=== PATIENT | male | born 1990 | race Caucasian/White ===

== ENCOUNTER 2016-09-27 10:36 | Emergency (ER) | payer OTHER ==
--- NOTE | 2016-09-27 10:59 | PDOC ---
History of Present Illness - General History Source: Patient Exam Limitations: Clinical Condition - History of Present Illness Initial Comments: 09/27/16 11:04 The patient is a 26-year-old male, accompanied by health aide, with a significant past medical history of autism who presents to the emergency department via EMS for further evaluation of chest pain. Patient states that his chest pain is midsternal. He is unable to describe the nature of the pain and/or provide exacerbating/alleviating factors but notes that his pain occurs after he eats and lays flat to go to bed. No other information, as patient is vague when answering questions. <Emily Drummond - Last Filed: 09/27/16 11:05> <Prabha Huber - Last Filed: 09/27/16 12:38> - General Stated Complaint: CHEST PAIN Time Seen by Provider: 09/27/16 10:57 Past History <Emily Drummond - Last Filed: 09/27/16 11:05> <Prabha Huber - Last Filed: 09/27/16 12:38> - Past Medical History Allergies/Adverse Reactions: Allergies Allergy/AdvReac Type Severity Reaction Status Date / Time Penicillins Allergy Verified 09/27/16 11:31 Home Medications: Ambulatory Orders Aripiprazole [Abilify -] 5 mg PO DAILY 09/27/16 Cholecalciferol (Vitamin D3) [Vitamin D3 -] 1,000 unit PO DAILY 09/27/16 Divalproex Sodium [Depakote] 250 mg PO DAILY 09/27/16 Divalproex [Depakote -] 500 mg PO DAILY 09/27/16 Paroxetine HCl [Paxil -] 20 mg PO DAILY 09/27/16 Review of Systems - Review of Systems Able to Perform ROS?: Yes Comments:: 09/27/16 11:07 GENERAL/CONSTITUTIONAL: No fever or chills. No weakness. HEAD, EYES, EARS, NOSE AND THROAT: No change in vision. No ear pain or discharge. No sore throat. CARDIOVASCULAR: Yes: +Chest pain. No shortness of breath. RESPIRATORY: No cough, wheezing, or hemoptysis. GASTROINTESTINAL: No nausea, vomiting, diarrhea or constipation. GENITOURINARY: No dysuria, frequency, or change in urination. MUSCULOSKELETAL: No joint or muscle swelling or pain. No neck or back pain. SKIN: No rash NEUROLOGIC: No headache, vertigo, loss of consciousness, or change in strength/ sensation. ENDOCRINE: No increased thirst. No abnormal weight change. HEMATOLOGIC/LYMPHATIC: No anemia, easy bleeding, or history of blood clots. ALLERGIC/IMMUNOLOGIC: No hives or skin allergy. <Emily Drummond - Last Filed: 09/27/16 11:05> *Physical Exam - Physical Exam Comments: 09/27/16 11:04 GENERAL: Awake, alert, and fully oriented, in no acute distress HEAD: No signs of trauma EYES: PERRLA, EOMI, sclera anicteric, conjunctiva clear ENT: Auricles normal inspection, hearing grossly normal, nares patent, oropharynx clear without exudates. Moist mucosa NECK: Normal ROM, supple, no lymphadenopathy, JVD, or masses LUNGS: Breath sounds equal, clear to auscultation bilaterally. No wheezes, and no crackles HEART: Regular rate and rhythm, normal S1 and S2, no murmurs, rubs or gallops ABDOMEN: Soft, nontender, normoactive bowel sounds. No guarding, no rebound. No masses EXTREMITIES: Normal range of motion, no edema. No clubbing or cyanosis. No cords, erythema, or tenderness NEUROLOGICAL: Cranial nerves II through XII grossly intact. Normal speech. <Emily Drummond - Last Filed: 09/27/16 11:05> Heart Score/ECG Review - ECG Impressions Comment:: EKG read 11:10- NSR 91 bpm, no acute ST/T changes. <Prabha Huber - Last Filed: 09/27/16 12:38> *DC/Admit/Observation/Transfer - Attestations Scribe Attestion: 09/27/16 11:04 Documentation prepared by Emily Drummond, acting as medical device for Prabha Huber MD. <Emily Drummond - Last Filed: 09/27/16 11:05> - Discharge Dispostion Admit: No <Prabha Huber - Last Filed: 09/27/16 12:38> Diagnosis at time of Disposition: Upper respiratory tract infection Qualifiers: URI type: unspecified viral URI Qualified Code(s): J06.9 - Acute upper respiratory infection, unspecified; B97.89 - Other viral agents as the cause of diseases classified elsewhere - Discharge Dispostion Disposition: HOME Condition at time of disposition: Stable
[2016-09-27] MEDS ORDERED: MAG HYDROX/AL HYDROX/SIMETH 30 ML UNIT-DOSE CUP PO ONE (11:03)
[2016-09-27] MEDS ORDERED: ACETAMINOPHEN 325 MG TABLET (FP) PO ONE (11:12)
--- NOTE | 2016-09-27 11:25 | EKG ---
Test Reason : Blood Pressure : / mmHG Vent. Rate : 091 BPM Atrial Rate : 091 BPM P-R Int : 132 ms QRS Dur : 102 ms QT Int : 358 ms P-R-T Axes : 056 020 026 degrees QTc Int : 440 ms NORMAL SINUS RHYTHM NORMAL ECG NO PREVIOUS ECGS AVAILABLE Confirmed by HITESH CABA MD ([id number]) on 09/27/2016 11:25:41 AM Referred By: Confirmed By:HITESH CABA MD
[2016-09-27 11:31] VITALS: BMI 27.7
[2016-09-27] MEDS ORDERED: ACETAMINOPHEN 325 MG TABLET (FP) ONE (11:37)
[2016-09-27] MEDS ORDERED: MAG HYDROX/AL HYDROX/SIMETH 30 ML UNIT-DOSE CUP ONE (11:37)
[2016-09-27 12:54] VITALS: BP 138/89; PULSE 92; TEMP 99
== END 2016-09-27 12:54 | disposition home or self-care (01) ==
LOC: JER 10:36
DX: J06.9 Acute upper respiratory infection, unspecified (principal); B97.89 Other viral agents as the cause of diseases classified elsewhere; F84.0 Autistic disorder
CPT/HCPCS: 71020-TC; 87804; 93005; 93010; 99283-25

== ENCOUNTER 2017-07-13 18:03 | Emergency (ER) | payer BC, OTHER ==
[2017-07-13 18:26] VITALS: BP 125/90; PULSE 98; TEMP 98.6; BMI 25.0
[2017-07-13 18:38] LABS: BASOPHIL 1.4 % (0-2.0); MCH 29.7 pg (25.7-33.7); MCHC 34.7 g/dl (32.0-35.9); MEAN CELL VOLUME 85.5 fl (80-96); MEAN PLT VOLUME 8.2 fl (7.5-11.1); NEUTROPHILS 54.4 % (42.8-82.8); PLATELET COUNT 250 K/MM3 (134-434); RDW 13.7 % (11.9-15.9)
[2017-07-13 18:59] LABS: ALBUMIN 4.1 g/dl (3.4-5.0); ANION GAP 10 (8-16); BILIRUBIN,TOTAL 0.5 mg/dL (0.2-1.0); CALCIUM 9.5 mg/dL (8.5-10.1); CO2 25 mmol/L (21-32); CREATININE 1.1 mg/dL (0.7-1.3); GLUCOSE,RANDOM 85 mg/dL (74-106); MAGNESIUM 2.1 mg/dL (1.8-2.4); SGOT/AST 72 U/L (15-37); SGPT/ALT 95 U/L (12-78); TOT PROT 7.9 g/dl (6.4-8.2)
[2017-07-13 19:02] LABS: ALK PHOS 47 U/L (45-117); CPK 111 IU/L (39-308); TROPONIN I < 0.02 ng/ml (0.00-0.05)
--- NOTE | 2017-07-13 19:46 | PDOC ---
History of Present Illness - General History Source: Patient <Jemal Jordan - Last Filed: 07/13/17 19:54> - General History Source: Patient, Care Provider (penitentiary aide) Exam Limitations: No Limitations - History of Present Illness Initial Comments: 07/13/17 19:59 The patient is a 27 year old male, with a significant past medical history of Autism, Anxiety, HLD, accompanied by health aide who presents to the emergency department with chest pain. Patient experienced intermittent chest pain prior to arrival. Patient is unable to describe the nature of the pain and/or provide any exacerbating/alleviating factors. Patient is a resident from a residential. Patient denies any fever/chills, cough, recent travel. Patient denies any diaphoresis, dyspnea or dyspnea on exertion. Allergies: Penicillins PSHx: None Social Hx: None <Marni Sandra - Last Filed: 07/13/17 20:02> - General Chief Complaint: Chest Pain Stated Complaint: CHEST PAIN Time Seen by Provider: 07/13/17 18:12 Past History - Past Medical History GI Disorders: Yes (gerd) Hypercholesterolemia: Yes Psychiatric Problems: Yes (anxiety) - Suicide/Smoking/Psychosocial Hx Smoking History: Never smoked Have you smoked in the past 12 months: No Information on smoking cessation initiated: No Hx Alcohol Use: No Drug/Substance Use Hx: No Substance Use Type: None <Rissa Jordanan - Last Filed: 07/13/17 19:54> <Marni Sandra - Last Filed: 07/13/17 20:02> - Past Medical History Allergies/Adverse Reactions: Allergies Allergy/AdvReac Type Severity Reaction Status Date / Time Penicillins Allergy Verified 07/13/17 18:13 Home Medications: Ambulatory Orders Aripiprazole [Abilify -] 5 mg PO HS 09/27/16 Divalproex Sodium [Depakote] 250 mg PO BID 09/27/16 Divalproex [Depakote -] 1,000 mg PO BID 09/27/16 Paroxetine HCl [Paxil -] 20 mg PO DAILY 09/27/16 Fenofibrate Nanocrystallized [Tricor] 48 mg PO HS 07/13/17 Levofloxacin [Levaquin -] 500 mg PO DAILY #7 tablet 07/13/17 Review of Systems - Review of Systems Able to Perform ROS?: Yes Comments:: 07/13/17 19:59 CONSTITUTIONAL: Absent: fever, chills, diaphoresis, generalized weakness, malaise, loss of appetite HEENT: Absent: rhinorrhea, nasal congestion, throat pain, throat swelling, difficulty swallowing, mouth swelling, ear pain, eye pain, visual Changes CARDIOVASCULAR: +chest pain. Absent: syncope, palpitations, irregular heart rate, lightheadedness, peripheral edema RESPIRATORY: Absent: cough, shortness of breath, dyspnea with exertion, orthopnea, wheezing, stridor, hemoptysis GASTROINTESTINAL: Absent: abdominal pain, abdominal distension, nausea, vomiting, diarrhea, constipation, melena, hematochezia GENITOURINARY: Absent: dysuria, frequency, urgency, hesitancy, hematuria, flank pain, genital pain MUSCULOSKELETAL: Absent: myalgia, arthralgia, joint swelling SKIN: Absent: rash, itching, pallor HEMATOLOGIC/IMMUNOLOGIC: Absent: easy bleeding, easy bruising, lymphadenopathy, frequent infections ENDOCRINE: Absent: unexplained weight gain, unexplained weight loss, heat intolerance, cold intolerance NEUROLOGIC: Absent: headache, focal weakness or paresthesias, dizziness, unsteady gait, seizure, mental status changes, bladder or bowel incontinence PSYCHIATRIC: Absent: anxiety, depression, suicidal or homicidal ideation, hallucinations. <Marni Sandra - Last Filed: 07/13/17 20:02> *Physical Exam - Vital Signs Last Vital Signs Temp Pulse Resp BP Pulse Ox 98.6 F 98 H 18 125/90 100 07/13/17 18:14 07/13/17 18:14 07/13/17 18:14 07/13/17 18:14 07/13/17 18:14 <Jemal Jordan - Last Filed: 07/13/17 19:54> - Vital Signs Last Vital Signs Temp Pulse Resp BP Pulse Ox 98.6 F 98 H 18 125/90 100 07/13/17 18:14 07/13/17 18:14 07/13/17 18:14 07/13/17 18:14 07/13/17 18:14 - Physical Exam Comments: 07/13/17 20:00 GENERAL: Well developed, well nourished. Awake and alert. In no acute distress. HEENT: Normocephalic, atraumatic. PERRLA, EOMI. No conjunctival pallor. Sclerae are non -icteric. Moist mucous membranes. Oropharynx is clear. NECK: Supple. Full ROM. No JVD. Carotid pulses 2+ and symmetric, without bruits. No thyromegaly. No lymphadenopathy. CARDIOVASCULAR: Regular rate and rhythm. No murmurs, rubs, or gallops. Distal pulses are 2+ and symmetric. PULMONARY: +Rhonchi in R mid lung region. No evidence of respiratory distress. Lungs clear to auscultation posteriorly. No wheezing, rales. ABDOMINAL: Soft. Non-tender. Non-distended. No rebound or guarding. No organomegaly. Normoactive bowel sounds. MUSCULOSKELETAL Normal range of motion at all joints. No bony deformities or tenderness. No CVA tenderness. EXTREMITIES: No cyanosis. No clubbing. No edema. No calf tenderness. SKIN: Warm and dry. Normal capillary refill. No rashes. No jaundice. NEUROLOGICAL: Alert, awake, appropriate. Cranial nerves 2-12 intact. No deficits to light touch and temperature in face, upper extremities and lower extremities. No motor deficits in the in face, upper extremities and lower extremities. Normoreflexic in the upper and lower extremities. Normal speech. Toes are downgoing bilaterally. Gait is normal without ataxia. PSYCHIATRIC: Cooperative. Good eye contact. Appropriate mood and affect. <Marni Sandra - Last Filed: 07/13/17 20:02> Heart Score/ECG Review #1 07/13/17 20:[address] Julian Amaro. rate 92 bpm NSR Normal ECG <Marni Sandra - Last Filed: 07/13/17 20:02> ED Treatment Course - LABORATORY CBC & Chemistry Diagram: 07/13/17 18:25 07/13/17 18:25 - ADDITIONAL ORDERS Additional order review: Laboratory Results 07/13/17 18:25 Sodium 137 Potassium 4.5 Chloride 102 Carbon Dioxide 25 Anion Gap 10 BUN 21 H Creatinine 1.1 Creat Clearance w eGFR > 60 Random Glucose 85 Calcium 9.5 Magnesium 2.1 Total Bilirubin 0.5 AST 72 H ALT 95 H Alkaline Phosphatase 47 Creatine Kinase 111 Troponin I < 0.02 Total Protein 7.9 Albumin 4.1 07/13/17 18:25 RBC 4.67 MCV 85.5 MCHC 34.7 RDW 13.7 MPV 8.2 Neutrophils % 54.4 Lymphocytes % 33.6 Monocytes % 9.6 Eosinophils % 1.0 Basophils % 1.4 <Jemal Jordan - Last Filed: 07/13/17 19:54> - LABORATORY CBC & Chemistry Diagram: 07/13/17 18:25 07/13/17 18:25 - ADDITIONAL ORDERS Additional order review: Laboratory Results 07/13/17 18:25 Sodium 137 Potassium 4.5 Chloride 102 Carbon Dioxide 25 Anion Gap 10 BUN 21 H Creatinine 1.1 Creat Clearance w eGFR > 60 Random Glucose 85 Calcium 9.5 Magnesium 2.1 Total Bilirubin 0.5 AST 72 H ALT 95 H Alkaline Phosphatase 47 Creatine Kinase 111 Troponin I < 0.02 Total Protein 7.9 Albumin 4.1 07/13/17 18:25 RBC 4.67 MCV 85.5 MCHC 34.7 RDW 13.7 MPV 8.2 Neutrophils % 54.4 Lymphocytes % 33.6 Monocytes % 9.6 Eosinophils % 1.0 Basophils % 1.4 <Marni Sandra - Last Filed: 07/13/17 20:02> Medical Decision Making - Medical Decision Making 07/13/17 19:56 Dr. Jordan: The scribe's documentation has been prepared under my direction and personally reviewed by me in its entirery. I confirm that the note above accurately reflects all work, treatment, procedures, and medical decision making performed by me. <Jemal Jordan - Last Filed: 07/13/17 19:54> *DC/Admit/Observation/Transfer - Discharge Dispostion Admit: No <Jeaml Jordan - Last Filed: 07/13/17 19:54> - Attestations Scribe Attestion: 07/13/17 20:00 Documentation prepared by Marni Sandra, acting as lpn medical assistant for Jemal Jordan DO. <Marni Sandra - Last Filed: 07/13/17 20:02> Diagnosis at time of Disposition: Upper respiratory infection Qualifiers: URI type: unspecified URI Qualified Code(s): J06.9 - Acute upper respiratory infection, unspecified Pneumonia Qualifiers: Pneumonia type: due to unspecified organism Laterality: right Lung location: middle lobe of lung Qualified Code(s): J18.1 - Lobar pneumonia, unspecified organism - Discharge Dispostion Disposition: HOME Condition at time of disposition: Stable - Prescriptions Prescriptions: Levofloxacin [Levaquin -] 500 mg PO DAILY #7 tablet - Patient Instructions Printed Discharge Instructions: DI for Pneumonia -- Adult Additional Instructions: give medication as directed. Please follow up with pt primary care doctor for re-evaluation for two days.
[2017-07-13] MEDS ORDERED: LEVOFLOXACIN 500 MG TABLET (FP) PO ONE (19:51)
[2017-07-13] MEDS ORDERED: LEVOFLOXACIN 500 MG TABLET (FP) ONE (20:02)
--- NOTE | 2017-07-14 13:05 | EKG ---
Test Reason : Blood Pressure : / mmHG Vent. Rate : 092 BPM Atrial Rate : 092 BPM P-R Int : 138 ms QRS Dur : 100 ms QT Int : 364 ms P-R-T Axes : 037 028 021 degrees QTc Int : 450 ms POOR DATA QUALITY, INTERPRETATION MAY BE ADVERSELY AFFECTED NORMAL SINUS RHYTHM NORMAL ECG WHEN COMPARED WITH ECG OF 27-SEP-2016 11:08, NO SIGNIFICANT CHANGE WAS FOUND Confirmed by MABEL PONCE, BLAYNE ([id number]) on 07/14/2017 1:04:53 PM Referred By: Confirmed By:BLAYNE MONROE MD
== END 2017-07-13 20:08 | disposition home or self-care (01) ==
LOC: JER 18:03
DX: J06.9 Acute upper respiratory infection, unspecified (principal); J18.1 Lobar pneumonia, unspecified organism; F84.0 Autistic disorder; F41.9 Anxiety disorder, unspecified; E78.5 Hyperlipidemia, unspecified
CPT/HCPCS: 36415; 71020-TC; 80053; 82550; 83735; 84484; 85025; 93005; 93010; 99283-25

== ENCOUNTER 2017-11-30 20:26 | Emergency (ER) | payer BC, OTHER ==
[2017-11-30 20:39] VITALS: TEMP 98.7; BMI 28.8
[2017-11-30 21:05] LABS: BASO % 0.4 % (0-2.0); EOS % 0.2 % (0-4.5); HEMATOCRIT 38.2 % (35.4-49); HEMOGLOBIN 13.6 GM/dL (11.7-16.9); LYMPH % 14.8 % (8-40); MCH 31.2 pg (25.7-33.7); MCHC 35.5 g/dl (32.0-35.9); MEAN CELL VOLUME 87.8 fl (80-96); MEAN PLT VOLUME 8.8 fl (7.5-11.1); NEUT % 76.6 % (42.8-82.8); PLATELET COUNT 245 K/MM3 (134-434); RBC 4.35 M/mm3 (4.00-5.60); RDW 13.1 % (11.9-15.9)
[2017-11-30] MEDS ORDERED: SODIUM CHLORIDE 1,000 ML IV STA (21:13)
[2017-11-30 21:29] LABS: ALBUMIN 4.1 g/dl (3.4-5.0); ANION GAP 12 (8-16); BILIRUBIN,TOTAL 0.4 mg/dL (0.2-1.0); BLOOD UREA NITROGEN 18 mg/dL (7-18); CALCIUM 9.3 mg/dL (8.5-10.1); CHLORIDE 105 mmol/L (98-107); CO2 22 mmol/L (21-32); CREATININE 1.2 mg/dL (0.7-1.3); GLUCOSE,RANDOM 97 mg/dL (74-106); POTASSIUM 4.4 mmol/L (3.5-5.1); SGOT/AST 58 U/L (15-37); SGPT/ALT 78 U/L (12-78); SODIUM 139 mmol/L (136-145); TOT PROT 7.8 g/dl (6.4-8.2)
[2017-11-30 21:30] LABS: ALK PHOS 54 U/L (45-117)
--- NOTE | 2017-11-30 21:34 | PDOC ---
History of Present Illness - General Chief Complaint: Pain, Acute Stated Complaint: LEFT FLANK PAIN Time Seen by Provider: 11/30/17 20:32 History Source: Patient Exam Limitations: No Limitations - History of Present Illness Initial Comments: CHIEF COMPLAINT: 27 y/o afebrile male with PMH autism and anxiety BIB staff from [facility] for left flank pain today. HISTORY OF PRESENT ILLNESS: The patient states the pain started today. The staff brought him to Urgent Care and they checked his urine and found blood in it so they sent him here. The patient and staff member deny fever, vomiting, back pain. The patient has not been given anything for pain. Vital signs on arrival are within normal limits. REVIEW OF SYSTEMS: GENERAL/CONSTITUTIONAL: No fever/chills. No weakness. No weight change. HEAD, EYES, EARS, NOSE AND THROAT: No change in vision. No ear pain or discharge. No sore throat. CARDIOVASCULAR: No chest pain or shortness of breath. RESPIRATORY: No cough, wheezing, or hemoptysis. GASTROINTESTINAL: +left side pain. No nausea, vomiting, diarrhea, constipation. GENITOURINARY: +hematuria at urgent care. No dysuria or frequency. MUSCULOSKELETAL: No joint or muscle swelling or pain. No neck or back pain. SKIN: No rash or easy bruising. NEUROLOGIC: No headache, vertigo, loss of consciousness, or loss of sensation. PHYSICAL EXAM: GENERAL: The patient is awake, alert, and fully oriented, in no acute distress. He is well appearing. HEAD: Normal with no signs of trauma. ABDOMEN: Soft, non-distended, TTP of left flank. No suprapubic TTP. No rebound , guarding or rigidity. BACK: No CVA TTP b/l. EXTREMITIES: Normal range of motion, no edema. NEUROLOGICAL: Normal speech, normal gait. CN II-XII grossly intact. SKIN: Warm, dry, normal turgor, no rashes or lesions noted. Past History - Past Medical History Allergies/Adverse Reactions: Allergies Allergy/AdvReac Type Severity Reaction Status Date / Time Penicillins Allergy Verified 11/30/17 20:35 Home Medications: Ambulatory Orders Aripiprazole [Abilify -] 5 mg PO HS 09/27/16 Divalproex Sodium [Depakote] 250 mg PO BID 09/27/16 Divalproex [Depakote -] 1,000 mg PO BID 09/27/16 Paroxetine HCl [Paxil -] 20 mg PO DAILY 09/27/16 Fenofibrate Nanocrystallized [Tricor] 48 mg PO HS 07/13/17 Cholecalciferol (Vitamin D3) [Vitamin D3 -] 1,000 unit PO DAILY 11/30/17 Clonazepam 0.25 mg PO BID 11/30/17 Ibuprofen [Motrin -] 600 mg PO Q6H #20 tablet 11/30/17 Nitrofurantoin Monohyd/M-Cryst [Macrobid -] 100 mg PO BID #14 capsule 11/30/17 Phenazopyridine HCl [Pyridium] 200 mg PO TID #6 tablet 11/30/17 COPD: No GI Disorders: Yes (gerd) Hypercholesterolemia: Yes Psychiatric Problems: Yes (anxiety) - Suicide/Smoking/Psychosocial Hx Smoking History: Unknown if ever smoked Have you smoked in the past 12 months: No Information on smoking cessation initiated: No Hx Alcohol Use: No Drug/Substance Use Hx: No Substance Use Type: None *Physical Exam - Vital Signs Last Vital Signs Temp Pulse Resp BP Pulse Ox 98.7 F 92 H 14 125/90 97 11/30/17 20:36 11/30/17 20:36 11/30/17 20:36 11/30/17 20:36 11/30/17 20:36 ED Treatment Course - LABORATORY CBC & Chemistry Diagram: 11/30/17 21:00 11/30/17 21:00 Medical Decision Making - Medical Decision Making A/P: 27 y/o male with possible kidney stone. He is currently refusing pain medication. Plan is as follows: 1. Labs 2. UA/culture 3. Spiral CT THe patient refused pain medication at this time. Labs - WBC count of 10 with 76% neutrophil % UA with 27 WBC, 3+ blood Spiral CT IMPRESSION: No evidence of hydronephrosis. There is a 2mm ureterolithiasis in the left distal ureter. Mild diffuse thickening of the bladder likely due to underdistention. Will give Pyridium in the ER. Will discharge to home with macrobid, pyridium and motrin. Instructed the patient to drink at least 64oz of water daily and to return to the ER with any worsening or concerning symptoms. The patient's care worker verbalizes understanding of all instructions, has no further questions and is awaiting discharge. *DC/Admit/Observation/Transfer Diagnosis at time of Disposition: Kidney stone UTI (urinary tract infection) Qualifiers: Urinary tract infection type: site unspecified Hematuria presence: with hematuria Qualified Code(s): N39.0 - Urinary tract infection, site not specified ; R31.9 - Hematuria, unspecified; R31.9 - Hematuria, unspecified - Discharge Dispostion Disposition: HOME Condition at time of disposition: Good - Referrals Referrals: Navarro Connell [Primary Care Provider] - - Patient Instructions Printed Discharge Instructions: DI for Kidney Stones, DI for Urinary Tract Infection (UTI) Additional Instructions: Discharge Instructions: -You have a kidney stone and UTI -3 prescriptions have been sent to your pharmacy; one will turn your urine orange/red -Drink plenty of fluids -Return to the ER with any worsening or concerning symptoms - Post Discharge Activity
[2017-11-30 21:39] LABS: URINE APPEARANCE SLCLOUDY; URINE BILIRUBIN NEGATIVE (NEGATIVE); URINE BLOOD 3+ (NEGATIVE); URINE COLOR YELLOW; URINE GLUCOSE (UA) NEGATIVE (NEGATIVE); URINE KETONE TRACE (NEGATIVE); URINE LEUK ESTERASE NEGATIVE (NEGATIVE); URINE NITRITE NEGATIVE (NEGATIVE); URINE UROBILINOGEN NEGATIVE mg/dL (0.2-1.0)
[2017-11-30 21:44] LABS: URINE PROTEIN 1+ (NEGATIVE)
[2017-11-30 21:46] LABS: EPI CELLS RARE /HPF (FEW); URINE MUCUS RARE
--- NOTE | 2017-11-30 21:51 | PDOC ---
*Physical Exam - Vital Signs Last Vital Signs Temp Pulse Resp BP Pulse Ox 98.7 F 92 H 14 125/90 97 11/30/17 20:36 11/30/17 20:36 11/30/17 20:36 11/30/17 20:36 11/30/17 20:36 ED Treatment Course - LABORATORY CBC & Chemistry Diagram: 11/30/17 21:00 11/30/17 21:00 - ADDITIONAL ORDERS Additional order review: Laboratory Results 11/30/17 11/30/17 21:00 20:43 Sodium 139 Potassium 4.4 Chloride 105 Carbon Dioxide 22 Anion Gap 12 BUN 18 Creatinine 1.2 Creat Clearance w eGFR > 60 Random Glucose 97 Calcium 9.3 Total Bilirubin 0.4 AST 58 H ALT 78 Alkaline Phosphatase 54 Total Protein 7.8 Albumin 4.1 Urine Color Yellow Urine Appearance Slcloudy Urine pH 6.0 Ur Specific [place] 1.018 Urine Protein 1+ H Urine Glucose (UA) Negative Urine Ketones Trace H Urine Blood 3+ H Urine Nitrite Negative Urine Bilirubin Negative Urine Urobilinogen Negative Ur Leukocyte Esterase Negative Urine WBC (Auto) 27 Urine RBC (Auto) 1083 Ur Epithelial Cells Rare Urine Mucus Rare 11/30/17 21:00 RBC 4.35 MCV 87.8 MCHC 35.5 RDW 13.1 MPV 8.8 Neutrophils % 76.6 D Lymphocytes % 14.8 D Monocytes % 8.0 Eosinophils % 0.2 Basophils % 0.4 Medical Decision Making - Medical Decision Making 11/30/17 21:50 agree with care from DOC Iniguez *DC/Admit/Observation/Transfer Diagnosis at time of Disposition: Kidney stone, UTI (urinary tract infection) - Discharge Dispostion Disposition: HOME Condition at time of disposition: Good - Prescriptions Prescriptions: Ibuprofen [Motrin -] 600 mg PO Q6H #20 tablet Nitrofurantoin Monohyd/M-Cryst [Macrobid -] 100 mg PO BID #14 capsule Phenazopyridine HCl [Pyridium] 200 mg PO TID #6 tablet - Referrals Referrals: Navarro Connell [Primary Care Provider] - - Patient Instructions Printed Discharge Instructions: DI for Kidney Stones, DI for Urinary Tract Infection (UTI) Additional Instructions: Discharge Instructions: -You have a kidney stone and UTI -3 prescriptions have been sent to your pharmacy; one will turn your urine orange/red -Drink plenty of fluids -Return to the ER with any worsening or concerning symptoms - Post Discharge Activity
[2017-11-30] MEDS ORDERED: PHENAZOPYRIDINE HCL 100 MG TABLET (FP) PO ONE (23:47)
[2017-11-30] MEDS ORDERED: PHENAZOPYRIDINE HCL 100 MG TABLET (FP) ONE (23:59)
[2017-12-01 00:09] VITALS: BP 111/61; PULSE 83
== END 2017-12-01 00:09 | disposition home or self-care (01) ==
LOC: JER 20:26
PROC: 3E0337Z Introduction of Electrolytic and Water Balance Substance into Peripheral Vein, Percutaneous Approach (ICD-10-PCS; principal; 2017-11-30)
DX: N20.2 Calculus of kidney with calculus of ureter (principal); E78.00 Pure hypercholesterolemia, unspecified; F41.9 Anxiety disorder, unspecified; F84.0 Autistic disorder; K21.9 Gastro-esophageal reflux disease without esophagitis
CPT/HCPCS: 36415; 74176; 80053; 81003; 81015; 85025; 87086; 99282-25; J7030